=== PATIENT | male | born 1980 | race Caucasian/White ===

== ENCOUNTER 2016-09-21 18:14 | Emergency (ER) | payer OTHER ==
[2016-09-21 21:09] VITALS: BP 152/100
== END 2016-09-21 21:09 | disposition home or self-care (01) ==
LOC: ED 18:14
DX: S30.0XXA Contusion of lower back and pelvis, initial encounter (principal); M54.30 Sciatica, unspecified side; J45.909 Unspecified asthma, uncomplicated; W22.8XXA Striking against or struck by other objects, initial encounter; Y93.89 Activity, other specified; Y99.8 Other external cause status; Y92.89 Other specified places as the place of occurrence of the external cause

== ENCOUNTER 2016-12-03 22:11 | Emergency (ER) | payer OTHER ==
[2016-12-03 23:14] VITALS: BP 143/89
== END 2016-12-03 23:14 | disposition home or self-care (01) ==
LOC: ED 22:11
DX: M19.022 Primary osteoarthritis, left elbow (principal); Z79.1 Long term (current) use of non-steroidal anti-inflammatories (NSAID); Z79.899 Other long term (current) drug therapy; J45.909 Unspecified asthma, uncomplicated
CPT/HCPCS: 82962

== ENCOUNTER 2016-12-23 09:54 | Emergency (ER) | payer OTHER ==
[2016-12-23 11:26] VITALS: BP 131/89
== END 2016-12-23 11:26 | disposition home or self-care (01) ==
LOC: ED 09:54
DX: T63.441A Toxic effect of venom of bees, accidental (unintentional), initial encounter (principal); L03.221 Cellulitis of neck; Y92.89 Other specified places as the place of occurrence of the external cause
CPT/HCPCS: J7512

== ENCOUNTER 2018-05-17 17:35 | Emergency (ER) | payer MEDICAID ==
[~2018-05-17] VITALS: Ht 185.4 cm; Wt 124.7 kg
[2018-05-17 17:57] VITALS: Ht 185.4 cm; Wt 124.7 kg
[2018-05-17 21:08] VITALS: BP 136/75
== END 2018-05-17 21:08 | disposition home or self-care (01) ==
LOC: ED 17:35
DX: J20.9 Acute bronchitis, unspecified (principal); J45.909 Unspecified asthma, uncomplicated
CPT/HCPCS: J7620; Q0092

== ENCOUNTER 2018-07-04 15:45 | Emergency (ER) | payer MEDICAID, OTHER | END 2018-07-04 18:06 | disposition home or self-care (01) | LOC: ED 15:45 ==